=== PATIENT | male | born 1940 | race Caucasian/White ===

== ENCOUNTER 2018-06-01 15:00 | Inpatient (IN) ==
[2018-06-08] MEDS ORDERED: Metoprolol Tartrate 25 MG Tablet PO SCH (07:07)
[2018-06-08] MEDS ORDERED: Chlorhexidine Gluconate 2% 1 Pack (2 Cloths) TOPICAL SCH (07:07)
[2018-06-08] MEDS ORDERED: Vancomycin Inj 1,000 MG in Sodium Chlor 0.9% Inj 250 ML IV.SIG SCH (08:00)
[2018-06-08] MEDS ORDERED: ceFAZolin 2 GM Premix Inj 2 GM/50 ML PIGGYBACK IV.SIG SCH (08:00)
[2018-06-08] MEDS ORDERED: SODIUM CHLOR P-ARTICULR SCH ×3 (08:00)
[2018-06-08] MEDS ORDERED: BUPIVACAINE LIPOSO P-ARTICULR SCH ×3 (08:00)
[2018-06-08] MEDS ORDERED: TRANEXAMIC ACID IV.SIG SCH (08:00)
[2018-06-08] MEDS ORDERED: [UNRECOGNIZED DRUG - OTHER] P-ARTICULR SCH ×3 (08:00)
[2018-06-08] MEDS ORDERED: Sodium Chlor 0.9% Inj 500 ML IV.SIG SCH (08:00)
[2018-06-08] MEDS ORDERED: Sodium Chlor 0.9% Inj 80 ML, Bupivacaine Liposo PF 1.3% Inj 20 ML, Bupivacaine 0.25% In... P-ARTICULR SCH ×3 (08:00)
[2018-06-08] MEDS ORDERED: SODIUM CHLOR 0.9% IV.SIG SCH (08:00)
[2018-06-08] MEDS ORDERED: Bupivacaine 0.5% Inj 50 ML MDV Vial ONE (08:07)
[2018-06-08] MEDS ORDERED: ceFAZolin Inj 1 GM Vial (Addvantage) IV.SIG ONE (08:23)
[2018-06-08] MEDS ORDERED: Sugammadex Inj 200 MG/2 ML Vial IV.PUSH ONE (08:28)
[2018-06-08] MEDS ORDERED: MULTIVITAMIN PO SCH (09:00)
[2018-06-08] MEDS ORDERED: Post-op Orders (for Pharmacy) OTHER STA (09:06)
[2018-06-08] MEDS ORDERED: Bisacodyl 10 MG Supp RECTAL PRN (09:06)
[2018-06-08] MEDS ORDERED: Morphine Inj 4 MG/ML Vial IV.PUSH PRN (09:06)
--- NOTE | 2018-06-08 09:11 | P.DCO ---
- Diagnosis (1) Failed total left knee replacement Status: Acute (2) Status post revision of total replacement of left knee Status: Acute - Physical Therapy Order: Evaluate and treat, Improve ambulation, Strength and gait training - Home Health Nursing Order: Medical education, Nursing assessment with vital signs - Case Management Consult Case Management Consult-Home Health: Yes - Certification I have seen patient Elvin Camacho on 06/08/18. My clinical findings support the need for the requested home health care services because: Limited ability to care for self, High risk of falls I certify that my clinical findings support that this patient is homebound because: Post-op weakness, Unsteady gait/balance, Unable to use public transportation
[2018-06-08] MEDS ORDERED: Tranexamic Acid Inj 1,000 MG in Sodium Chlor 0.9% Inj 100 ML IV.SIG ONE (11:00)
--- NOTE | 2018-06-08 11:55 | P.CONIM ---
History of Present Illness Consult date: 06/08/18 Requesting Physician: Saba Gusman Reason for Consult: Medical Management Primary Care Provider: [place] [facility] History of Present Illness: Mr. Staton is a pleasant 77 y/o WM with HTN, hyperlipidemia, BPH, aortic valve stenosis, GERD and diabetes mellitus. He was admitted to [facility] [place] [facility] on 06/08/18 for revision of previous left total knee arthroplasty which was performed by Dr. Gusman. [facility] Hospital[facility] team was consulted to help with managing the pts chronic medical issues. Pt seen post-op in the PACU and per report from the nurse the pt was having some hypoxia post- op and is currently requiring 4L of supplemental O2. He is maintaining his O2 sats and denies any SOB. He has been using his IS in the PACU. Pt denies any chest pain, palpitations, dizziness, nausea/vomiting, abd pain or reflux/ dyspepsia. Pt was given 1800mL of fluid during surgery per PACU nurse. Pt and deny any hx of PAM. Past Medical Hx: HTN Hyperlipidemia GERD BPH Diabetes mellitus Osteoarthritis Aortic valve stenosis Morbid obesity 2D echo (12/03/2017): - Mild LVH - Estimated EF 60-65% - LA moderately dilated - Trace mitral valve regurg - Mild aortic valve stenosis. Aortic mean gradient is 15mmHg - Mild tricuspid valve regurg - Estimated PA pressure 33mmHg Past Surgical Hx: Right total knee arthroplasty Left total knee arthroplasty in 2010 Shoulder surgery Gastric sleeve gastrectomy Family Hx: Noncontributory Social Hx: Denies any alcohol, tobacco or illicit drug use [facility] Social History Social History Substance History: No History of Abuse Second Hand Smoke Exposure: No Smoking Status: Former smoker How Often Do You Have a Drink Containing Alcohol: Monthly or less Recent Travel in [facility] within the Last 8 Weeks: No Recent Out of Country Travel within the Last 8 Weeks: No Medications and Allergies Allergies Allergy/AdvReac Type Severity Reaction Status Date / Time Sulfa (Sulfonamide Allergy Severe Rash Verified 06/08/18 07:16 Antibiotics) Home Medications Medication Instructions Recorded Confirmed Type amlodipine 10 mg PO DAILY 06/04/18 06/08/18 History aspirin [Aspirin Low Dose] 81 mg PO EVERY OTHER DAY 06/04/18 06/08/18 History flunisolide 1 spray INTRANASAL TID PRN 06/04/18 06/08/18 History lisinopril 40 mg PO DAILY 06/04/18 06/08/18 History metformin 500 mg PO BID 06/04/18 06/08/18 History multivitamin [Daily Multiple] 1 tab PO DAILY 06/04/18 06/04/18 History pantoprazole 40 mg PO BID 06/04/18 06/08/18 History potassium chloride 20 meq PO DAILY 06/04/18 06/08/18 History tamsulosin 0.8 mg PO HS 06/04/18 06/08/18 History tramadol 50 mg PO Q6H PRN 06/04/18 06/08/18 History Active Medications: Active Medications Hydrocodone Bitart/Acetaminophen ([place] 7.5/325) 1 tab PO Q4H PRN PRN Reason: PAIN LESS THAN 5 ON SCALE Hydrocodone Bitart/Acetaminophen ([place] 7.5/325) 2 tab PO Q6H PRN PRN Reason: PAIN SCALE 5 TO 10 Al Hydroxide/Mg Hydroxide (Milk Of [place] Liq) 30 ml PO BID PRN PRN Reason: Mild Constipation Amlodipine Besylate (Norvasc) 10 mg PO DAILY LANDY Apixaban (Eliquis) 2.5 mg PO BID LANDY Bisacodyl (Dulcolax Supp) 10 mg RECTAL DAILY PRN PRN Reason: SEVERE CONSITIPATION Chlorhexidine Gluconate (Chlorhexidine 2% Cloth) 3 pack TOPICAL [facility]ICE [facility] SPECIAL[facility] Stop: 06/08/18 23:59 Last Admin: 06/08/18 07:45 Dose: 3 pack Sodium Chloride 80 ml/Bupivacaine Liposome 20 ml/Bupivacaine HCl 20 ml 0 ml P- ARTICULR [facility]ICE [facility] SPECIAL[facility] Stop: 06/08/18 14:00 Fluticasone Propionate (Flonase Nasal [place]) 1 spray EACH NARE DAILY PRN PRN Reason: CONGESTION Lactated Ringer's (Lr 1000 Ml Inj) 1,000 mls @ 30 mls/hr IV.SIG .Q24H [facility] Stop: 06/09/18 07:14 Last Admin: 06/08/18 08:00 Dose: 30 mls/hr Sodium Chloride (Ns Inj) 500 mls @ 30 mls/hr IV.SIG .[id number] [facility] Stop: 06/09/18 00:39 Last Admin: 06/08/18 08:39 Dose: Not Given Cefazolin Sodium/Dextrose (Ancef 2 Gm Premix Inj) 2 gm in 50 mls @ 100 mls/hr IV.SIG [facility]ICE [facility] SPECIALIST [facility] Stop: 06/12/18 07:59 Last Infusion: 06/08/18 10:29 Dose: Infused Tranexamic Acid 1,270 mg/ (Sodium Chloride) 112.7 mls @ 200 mls/hr IV.SIG [facility]ICE [facility] SPECIAL[facility] Stop: 06/08/18 14:00 Last Infusion: 06/08/18 09:46 Dose: Infused Vancomycin HCl 1,000 mg/ (Sodium Chloride) 250 mls @ 250 mls/hr IV.SIG [facility]ICE [facility] SPECIAL[facility] Stop: 06/11/18 07:28 Last Admin: 06/08/18 10:05 Dose: 250 mls/hr Cefazolin Sodium 1,000 mg/ (Sodium Chloride) 100 mls @ 200 mls/hr IV.SIG Q6H [facility] Stop: 06/08/18 22:29 Lactated Ringer's (Lr 1000 Ml Inj) 1,000 mls @ 80 mls/hr IV.CONT .[id number] [facility] Lactulose (Lactulose Liq) 30 ml PO DAILY PRN PRN Reason: SEVERE CONSITIPATION Lisinopril (Prinivil) 40 mg PO DAILY [facility] Metformin HCl (Glucophage) 500 mg PO BID [facility] Metoprolol Tartrate (Lopressor) 25 mg PO [facility] SPECIAL[facility] Stop: 06/08/18 23:59 Last Admin: 06/08/18 08:41 Dose: Not Given Morphine Sulfate (Morphine Inj) 2 mg IV.PUSH Q3H PRN PRN Reason: BREAKTHROUGH PAIN Multivitamins/Minerals (Theragran-M) 1 tab PO BID [facility] Stop: 08/07/18 20:59 Ondansetron HCl (Zofran Odt) 4 mg PO Q6H PRN PRN Reason: NAUSEA OR VOMITING Pantoprazole Sodium (Protonix) 40 mg PO BID [facility] Potassium Chloride (K-Dur) 20 meq PO DAILY [facility] Povidone Iodine (Betadine 5% Antisepsis Kit) 1 applicatio EACH NARE [facility]ICE C[facility] SPECIALIST [facility] Stop: 06/08/18 23:59 Last Admin: 06/08/18 08:00 Dose: 1 applicatio Povidone Iodine (Betadine 7.5% Scrub) 1 applicatio TOPICAL ONCE [facility] Stop: 06/12/18 07:59 Last Admin: 06/08/18 08:41 Dose: Not Given Senna/Docusate Sodium ([place]-Colace) 1 tab PO BID LANDY Sennosides (Senokot) 17.2 mg PO BID PRN PRN Reason: Moderate Constipation Sodium Chloride (Ns Flush) 2 ml IV.FLUSH BID LANDY Sodium Chloride (Ns Flush) 2 ml IV.FLUSH PRN PRN PRN Reason: FLUSH AFTER USING IV ACCESS Tamsulosin HCl (Flomax) 0.8 mg PO HS [facility] Physical Exam Vital signs: Last Vital Signs Temp 98.1 F 06/08/18 07:10 Pulse 97 H 06/08/18 07:40 Resp 18 06/08/18 07:10 BP 151/74 H 06/08/18 07:10 Pulse Ox 93 L 06/08/18 07:40 Narrative: GENERAL: NAD, AAOx3 SKIN: Warm and dry. HEENT: Atraumatic. Normocephalic. Pupils equal and round. No scleral icterus. No injection or drainage. No nasal bleeding or discharge. Mucous membranes pink and moist. NECK: Trachea midline. No JVD. CARDIO: Regular. 3/6 ANDRY RESP: Clear to auscultation. Breath sounds equal bilaterally. ABD: +BS, soft, non-tender, nondistended. EXT: Extremities without clubbing, cyanosis, or edema. No obvious deformities. NEURO: Awake and alert. No obvious cranial nerve deficits. Motor grossly within normal limits. Five out of 5 muscle strength in the arms and legs. Normal speech. PSYCH: Appropriate mood and affect; insight and judgment normal. Results Labs CBC & Chem 7: 06/08/18 17:38 Assessment and Plan Assessment (1) Failed total left knee replacement: Code(s): T84.093A - Other mechanical complication of internal left knee prosthesis, initial encounter Status: Acute (2) Status post revision of total replacement of left knee: Code(s): Z96.652 - Presence of left artificial knee joint Status: Acute Plan Osteoarthritis with failed previous left TKA s/p revision of left TKA - Pt is a 77 y/o WM with HTN, hyperlipidemia, BPH, aortic valve stenosis, GERD and diabetes mellitus. - He was admitted to [facility] on 06/08/18 for revision of previous left total knee arthroplasty which was performed by Dr. Gusman. - Post-op pain control per Ortho - Pt with some hypoxia post-op and currently on 4L via NC. - Encourage IS use 10x per hour while awake - Check CXR - PT daily - Constipation precautions - Supportive care - DVT prophylaxis with Eliquis Diabetes Mellitus, Hgb A1C 6.3% in 09/2017 - Pt is on Metformin 500mg BID as an outpt and this was resumed following surgery - Monitor BG levels HTN - Pt is on Norvasc 10mg daily, Lisinopril 40mg daily and ?HCTZ 25mg daily as an outpt - Pt was resumed on Norvasc and Lisinopril following surgery. - Followup BP closely Hyperlipidemia - Pt has not tolerated statins in the past. GERD - PPI _ (1) Failed total left knee replacement Qualifiers: Encounter type:
--- NOTE | 2018-06-08 15:06 | MP ---
cc: Petar Gusman MD DATE OF OPERATION: 06/08/2018 PREOPERATIVE DIAGNOSIS: Failed left total knee arthroplasty. POSTOPERATIVE DIAGNOSIS: Failed left total knee arthroplasty. PROCEDURE PERFORMED: Revision left total knee arthroplasty using A[place]cul[place] revision component. SURGEON: Petar Gusman MD [employer] EXAMINER: Kennedi Quiroz APRN. ANESTHESIA: General intubation and block. PROCEDURE WAS FOLLOWS: The patient was brought to the operating room, placed on the operating table in supine position. After successful induction of general anesthesia, the patient's left knee, thigh and leg were prepped and draped in the usual manner. An anteromedial incision was then made through the old incision and extended an inch on either side, making a total of 12 inches; carried down through subcutaneous tissue through a medial parapatellar approach to the deep fascia to expose the joint. Clear serous fluid removed and sent to the lab for stat Gram stain and culture and sensitivity; Gram stain revealing few white cells, no bacteria seen. The knee was then debrided of tissue around the knee joint itself. The patellar reflected posteriorly and laterally, and found to have very little wear and was intact and left alone. The knee was flexed and first the femur was approached and found to be loose and easily removed without even using osteotomes. Cement mantle was found to be intact and this was removed using osteotomes, very little. Therefore, no bone loss was identified in this procedure. The tibia was then approached and found to be extremely well fixated by having had the stem cemented. Therefore, osteotomes were utilized and after 1-1/2 hours of disimpacting it and using osteotomes all around it, the tibia was finally removed. The rest of the cement in the canal removed and then the tibia was broached to a size 18 with a 132 mm offset stem after the surface cuts were freshened up. Then the femur was approached. Cuts freshened up around the femur using the cutting guide for the anterior, posterior and distal cuts and the anterior and posterior chamfer cuts and the femur canal was reamed to a size 19 mm x 175 mm 5-degree left knee; used size 3+ tibia and a 5 left knee. This was found to track best with a 24 insert. After all the broaches and the trials were removed, the wound was irrigated copiously with antibiotic solution. Meticulous hemostasis was achieved near the beginning of the case. The actual components were then cemented into place using 3 batches of antibiotic impregnated cement. After cement had hardened, the 24 was trialed again, found to track best and a lateral retinacular release was also performed to allow the patella to track better. Full range of motion was then appreciated with no instability and the alignment in the foot had been corrected with some internal rotation of the tibia when the tibia was cemented into place; 120 mL of mixture of 80 of normal saline, 20 Exparel 20 of 0.25% Marcaine plain was utilized around the knee joint for extra pain control. Deep fascia approximated with a running #2 Quill. The medial collateral ligament also repaired using interrupted #1-Vicryl and subcutaneous tissue approximated using 2-0 and 3-0 Quill and Prineo dressing and knee immobilizer. No drain utilized. No tourniquet utilized. ESTIMATED BLOOD LOSS: 300 mL. COUNTS: Sponge and suture counts were correct. The patient tolerated the procedure well and left the operating room in stable condition. Kennedi Quiroz APRN, was present during the entire case to include the patient positioning as well as helping throughout the case itself. MEDICAL NECESSITY: A nurse practitioner registered nurse first assistant was indicated in this case due to the surgical complexity of the case. The regional vice president surgical sales was working the back table while my regional vice president surgical sales, CHIDI was directly assisting me. An extra hour and a half of time was needed to disimpact the tibia. Total time on this case was over 4-1/2 hours. JMD ERIN Huitron/ainsley , 02:25 PM , 02:35 PM
[2018-06-08] MEDS ORDERED: fentaNYL Citrate Inj 100 MCG/2 ML Ampul ONE (15:09)
--- NOTE | 2018-06-08 15:31 | XR ---
EXAM DATE: 06/08/2018 3:19 PM EST AGE/SEX: 77 years / Male INDICATIONS: Post OP left knee. CLINICAL DATA: This is the patient's initial encounter. Patient reports that signs and symptoms have been present for 1 day and indicates a pain score of Nonresponsive. MEDICAL/SURGICAL HISTORY: None. None. COMPARISON: No prior exams available for comparison. FINDINGS: Examination demonstrates the patient to be post left knee arthroplasty. Orthopedic hardware is in exc ellent position. The alignment is anatomic. CONCLUSION: Orthopedic hardware is in excellent position. Electronically signed by: Wilber Saxena MD Board Certified Radiologist 06/08/2018 3:30 PM EST
[2018-06-08] MEDS ORDERED: *morphine SULFATE 4 MG/ML PERIprocedure ONLY ONE (16:23)
[2018-06-08] MEDS: ceFAZolin Inj 1 GM in Sodium Chlor 0.9% Inj 100 ML IV.SIG SCH ×2 (16:37→23:08)
[2018-06-08] MEDS ORDERED: ceFAZolin 1 GM Premix Inj 1 GM/50 ML PIGGYBACK IV.SIG ONE (16:39)
[2018-06-08] MEDS ORDERED: Metoprolol Inj 5 MG/5 ML Vial ONE (17:22)
--- NOTE | 2018-06-08 17:24 | XR ---
EXAM DATE: 06/08/2018 5:18 PM EST AGE/SEX: 77 years / Male INDICATIONS: Short of breath, post OP left knee. CLINICAL DATA: This is the patient's initial encounter. Patient reports that signs and symptoms have been present for 1 day and indicates a pain score of 0/10. MEDICAL/SURGICAL HISTORY: None. Total knee replacement, left. COMPARISON: No prior exams available for comparison. FINDINGS: A single AP view of the chest demonstrates the lungs to be symmetrically aerated without evidence of mass, infiltrate or effusion. The cardiomediastinal contours are unremarkable. Osseous structures a re intact. CONCLUSION: No acute cardiopulmonary disease. Electronically signed by: Prateek Nieves MD Board Certified Radiologist 06/08/2018 5:23 PM EST
[2018-06-08] MEDS ORDERED: Metoprolol Inj 5 MG/5 ML Vial IV.PUSH ONE (17:30)
[2018-06-08 17:53] LABS: Hematocrit 39.3 % (39.0-51.0); Hemoglobin 13.7 gm/dL (13.0-17.0)
[2018-06-08] MEDS: Senna/Docusate Sodium 8.6/50 MG Tablet PO SCH (20:56)
[2018-06-08] MEDS: Multivitamin/Minerals Therapeutic Tablet PO SCH (20:57)
[2018-06-09 05:16] LABS: Hematocrit 37.2 % (39.0-51.0); Hemoglobin 12.8 gm/dL (13.0-17.0)
[2018-06-09] MEDS: ceFAZolin Inj 1 GM in Sodium Chlor 0.9% Inj 100 ML IV.SIG SCH (06:50)
--- NOTE | 2018-06-09 07:59 | P.PNOP ---
Subjective Interval history: Pt comfortable at present time. Wants to start moving. Physical Exam Vital signs: Vital Signs 06/08/18 15:00 06/08/18 15:15 06/08/18 15:30 Temperature 97.8 F Pulse Rate 98 H 100 H 100 H Respiratory Rate 18 16 15 Blood Pressure 106/63 116/66 116/60 Pulse Oximetry 91 L 92 L 95 06/08/18 16:00 06/08/18 16:30 06/08/18 17:00 Temperature Pulse Rate 101 H 104 H 106 H Respiratory Rate 17 15 17 Blood Pressure 125/64 121/59 L 120/58 L Pulse Oximetry 95 93 L 94 L 06/08/18 17:50 06/08/18 21:05 06/09/18 00:55 Temperature 97.8 F 97.4 F L 97.9 F Pulse Rate 94 H 104 H 97 H Respiratory Rate 15 18 18 Blood Pressure 123/58 L 123/58 L 129/70 Pulse Oximetry 95 94 L 96 06/09/18 04:55 Temperature 97.8 F Pulse Rate 94 H Respiratory Rate 18 Blood Pressure 117/69 Pulse Oximetry 95 Intake & Output 06/08/18 06/09/18 06/09/18 18:59 06:59 18:59 Intake Total 2312.7 / 2312.7 580 / 580 Output Total 750 / 750 300 / 300 Balance 1562.7 / 1562.7 280 / 280 Weight 127.139 kg 127 kg Intake: IV 512.7 / 512.7 100 / 100 Cyklokapron Inj 1,270 MG In NS 112.7 / 112.7 Inj 100 ML @ 200 mls/hr IV.SIG DRESSER TENDER LANDY Rx#:[id number] Vancomycin Inj 1,000 MG In NS 250 / 250 Inj 250 ML @ 250 mls/hr IV.SIG DRESSER TENDER LANDY Rx#:[id number] Ancef 2 GM Premix Inj 2 gm In 50 / 50 50 ml @ 100 mls/hr IV.SIG DRESSER TENDER LANDY Rx#:[id number] Ancef Inj 1 GM In NS Inj 100 ML 100 / 100 100 / 100 @ 200 mls/hr IV.SIG Q6H LANDY Rx #:[id number] Oral 480 / 480 Anesthesia Amount 1800 / 1800 Output: Urine 300 / 300 Estimated Blood Loss 300 / 300 Urine Amount (Catheter) 450 / 450 Straight 450 / 450 Other: # Bowel Movements 0 Weight On Admission 127 kg - Constitutional no acute distress - Urinary Catheter Management Straight Cath placed during this visit: no Results - Labs CBC & Chem 7: 06/09/18 04:51 Laboratory Results - last 24 hr 06/08/18 06/08/18 06/08/18 07:18 17:38 21:45 Hgb 13.7 Hct 39.3 POC Glucose 285 H Blood Type Recheck Required Antibody Screen Negative 06/09/18 04:51 Hgb 12.8 L Hct 37.2 L POC Glucose Blood Type Recheck Antibody Screen Microbiology 06/08/18 09:56 Fluid - Other Gram Stain - Final - Imaging Impressions Chest X-Ray 06/08/18 00:00 CONCLUSION: No acute cardiopulmonary disease. Knee X-Ray 06/08/18 09:06 CONCLUSION: Orthopedic hardware is in excellent position. Assessment and Plan - Problem List (1) Failed total left knee replacement Code(s): T84.093A - Other mechanical complication of internal left knee prosthesis, initial encounter Status: Acute (2) Status post revision of total replacement of left knee Code(s): Z96.652 - Presence of left artificial knee joint Status: Acute - Attending Attestation Attending Attestation: OOB,PT, Possible home tomorrow.
[2018-06-09] MEDS: Lisinopril 20 MG Tablet PO SCH (08:45)
[2018-06-09] MEDS: Multivitamin/Minerals Therapeutic Tablet PO SCH ×2 (08:45→21:42)
[2018-06-09] MEDS: amLODIPine 10 MG Tablet PO SCH (08:45)
[2018-06-09] MEDS: Senna/Docusate Sodium 8.6/50 MG Tablet PO SCH ×2 (08:47→21:42)
[2018-06-10 05:32] LABS: Hematocrit 32.5 % (39.0-51.0); Hemoglobin 11.3 gm/dL (13.0-17.0)
--- NOTE | 2018-06-10 07:38 | P.PNOP ---
Subjective Interval history: Pt fairly comfortable today but sore. Physical Exam Vital signs: Vital Signs 06/09/18 08:00 06/09/18 12:00 06/09/18 16:00 Temperature 97.4 F L 97.6 F Pulse Rate 98 H 96 H Respiratory Rate 18 18 Blood Pressure 126/57 L 104/55 L Pulse Oximetry 97 94 L 94 L 06/09/18 20:00 06/09/18 22:00 06/10/18 04:35 Temperature 97.2 F L 97.7 F 97.7 F Pulse Rate 82 82 83 Respiratory Rate 17 20 18 Blood Pressure 110/55 L 123/57 L 95/53 L Pulse Oximetry 96 93 L 94 L Intake & Output 06/09/18 06/10/18 06/10/18 18:59 06:59 18:59 Intake Total 100 / 100 510 / 510 Output Total 350 / 350 Balance 100 / 100 160 / 160 Weight 126.9 kg Intake: IV 100 / 100 Ancef Inj 1 GM In NS Inj 100 ML 100 / 100 @ 200 mls/hr IV.SIG Q6H LANDY Rx #:[id number] Oral 510 / 510 Output: Urine 350 / 350 Other: # Bowel Movements 0 - Constitutional no acute distress - Urinary Catheter Management Straight Cath placed during this visit: no Results - Labs CBC & Chem 7: 06/10/18 04:12 Laboratory Results - last 24 hr 06/09/18 06/10/18 21:54 04:12 Hgb 11.3 L Hct 32.5 L POC Glucose 149 H Microbiology 06/08/18 09:56 Fluid - Other Gram Stain - Final 06/08/18 09:56 Fluid - Other Wound Culture - Preliminary No growth in 24 hours Assessment and Plan - Problem List (1) Failed total left knee replacement Code(s): T84.093A - Other mechanical complication of internal left knee prosthesis, initial encounter Status: Acute (2) Status post revision of total replacement of left knee Code(s): Z96.652 - Presence of left artificial knee joint Status: Acute - Attending Attestation Attending Attestation: Wound clean and dry. NV intact. Doing well but BP low. Cont PT today. Med management for low BP. Home tomorrow with HHC and PT.
[2018-06-10] MEDS: Multivitamin/Minerals Therapeutic Tablet PO SCH ×2 (08:07→22:12)
[2018-06-10] MEDS: Senna/Docusate Sodium 8.6/50 MG Tablet PO SCH ×2 (08:07→22:12)
[2018-06-10] MEDS: Lisinopril 20 MG Tablet PO SCH (08:10)
[2018-06-10] MEDS: amLODIPine 10 MG Tablet PO SCH (08:10)
[2018-06-11 09:01] VITALS: BP 105/75; PULSE 91; RESP 16; TEMP 97.8; O2SAT 98
[2018-06-11] MEDS: Senna/Docusate Sodium 8.6/50 MG Tablet PO SCH (09:14)
[2018-06-11] MEDS: Multivitamin/Minerals Therapeutic Tablet PO SCH (09:14)
--- NOTE | 2018-06-11 09:52 | P.PNOP ---
Subjective Interval history: Pt more comfortable today but feels weak and wants to go to rehab. Physical Exam Vital signs: Vital Signs 06/10/18 12:00 06/10/18 16:00 06/10/18 20:35 Temperature 97.8 F 98.0 F 98.2 F Pulse Rate 97 H 90 89 Respiratory Rate 18 18 17 Blood Pressure 134/58 L 130/58 L 109/58 L Pulse Oximetry 95 96 95 06/10/18 23:33 06/11/18 01:05 06/11/18 03:55 Temperature 98.1 F 97.4 F L Pulse Rate 89 88 Respiratory Rate 17 17 18 Blood Pressure 126/68 100/59 L Pulse Oximetry 94 L 96 06/11/18 08:00 Temperature 97.8 F Pulse Rate 91 H Respiratory Rate 16 Blood Pressure 105/75 Pulse Oximetry 98 Intake & Output 06/10/18 06/11/18 06/11/18 18:59 06:59 18:59 Intake Total 780 / 780 Output Total 1800 / 1800 700 / 700 Balance -1800 / -1800 80 / 80 Weight 126.8 kg Intake: Oral 780 / 780 Output: Urine 1800 / 1800 700 / 700 Other: # Bowel Movements 0 - Constitutional no acute distress - Urinary Catheter Management Straight Cath placed during this visit: no Results - Labs CBC & Chem 7: 06/10/18 04:12 Microbiology 06/08/18 09:56 Fluid - Other Gram Stain - Final 06/08/18 09:56 Fluid - Other Wound Culture - Preliminary No growth in 48 hours Assessment and Plan - Problem List (1) Failed total left knee replacement Code(s): T84.093A - Other mechanical complication of internal left knee prosthesis, initial encounter Status: Acute (2) Status post revision of total replacement of left knee Code(s): Z96.652 - Presence of left artificial knee joint Status: Acute - Attending Attestation Attending Attestation: Wound clean and dry. NV intact to toes. No calf tenderness. On CPM in bed at moment. Doing well overall Plan SNF today.
--- NOTE | 2018-06-11 12:38 | MD ---
cc: Petar Gusman MD DATE OF DISCHARGE: DATE OF ADMISSION: 05/29/2018. DATE OF DISCHARGE: 06/11/2018. DISCHARGE SUMMARY: This pleasant 77-year-old male was admitted on 06/08/2018 at which time he underwent a revision of a failed left total knee arthroplasty. He received a course of prophylactic IV antibiotics and within 23 hours started on anticoagulation therapy, continued to improve, remaining afebrile. Vital signs stable. Neurovascularly intact. Tolerating food and fluid well and physical therapy. Switched to p.o. pain medications and continued to improve and was discharged in good condition to a [facility] facility on postoperative day 3 for continuation of care with prescriptions for the pain medication and continuation of Eliquis. J. Ezra Gusman MD JRR/sb , 12:13 PM , 12:20 PM
== END 2018-06-11 13:39 | DRG 467 ==
LOC: HSDI 06-08 06:36 → INTOOBSV 06-08 06:36 → N06 06-08 18:03
PROVIDERS: ADMIT Surgery; ATTEND Surgery
CPT/HCPCS: 71010; 71045; 73560; 82948; 82962; 85014; 85018; 86850; 86900; 86901; 87070; 87205; 97110; 97116; 97150; 97162; 97167; C1776; C9290; J0131; J0690; J1100; J2250; J2270; J3010; J3370; J7120; L1830